=== PATIENT | male | born 1955 | race Caucasian/White ===

== ENCOUNTER → 2016-07-10 | Outpatient (CLI) | payer OTHER ==
--- NOTE | ~2016-07-10 | 24HR ---
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 Study duration 48 hours and technical quality good. 2. Predominant rhythm is sinus with an average heart rate of 73bpm, range 53-133bpm; longest RR interval 1.5seconds. 3. No heart block. No atrial fibrillation or atrial flutter. 4. Occasional atrial premature complexes, atrial couplets and triplets. No SVT. Supraventricular ectopy represents 2.6% of total QRS complexes. 5. Rare premature ventricular complexes, isolated. No VT. 6. No symptoms reported Electronically Signed On 07-13-2016 11:48:42 EXERCISE INSTRUCT by Eric Jasso [email or web address] <ELECTRONICALLY SIGNED> By: Eric Jasso MD, [facility] 07/13/16 1148 1339 1339 Eric Jasso MD, [facility] /EPI
== END ==
LOC: CV 13:17
DX: Z94.2 Lung transplant status (principal)